=== PATIENT | male | born 1965 | race Hispanic/Latino ===

== ENCOUNTER 2023-02-17 08:16 | Outpatient (CLI) | payer SELFPAY | END 2023-02-17 08:17 | disposition home or self-care (01) | LOC: CSHWCC 08:16 | PROVIDERS: ATTEND Nurse Practitioner Family | DX: T81.89XD Other complications of procedures, not elsewhere classified, subsequent encounter (principal); E10.621 Type 1 diabetes mellitus with foot ulcer; L97.425 Non-pressure chronic ulcer of left heel and midfoot with muscle involvement without evidence of necrosis | CPT/HCPCS: 97605; 99203; G0463 ==

== ENCOUNTER 2023-02-19 11:54 | Outpatient (CLI) | payer OTHER, SELFPAY | END 2023-02-19 11:55 | disposition home or self-care (01) | LOC: CSHWCC 11:54 | PROVIDERS: ATTEND Nurse Practitioner Family | DX: E11.621 Type 2 diabetes mellitus with foot ulcer (principal); L97.425 Non-pressure chronic ulcer of left heel and midfoot with muscle involvement without evidence of necrosis | CPT/HCPCS: 97605 ==

== ENCOUNTER 2023-02-23 11:58 | Outpatient (CLI) | payer OTHER, SELFPAY | END 2023-02-23 11:59 | disposition home or self-care (01) | LOC: CSHWCC 11:58 | PROVIDERS: ATTEND Nurse Practitioner Family | DX: E11.621 Type 2 diabetes mellitus with foot ulcer (principal); L97.425 Non-pressure chronic ulcer of left heel and midfoot with muscle involvement without evidence of necrosis; R60.0 Localized edema | CPT/HCPCS: 97605 ==

== ENCOUNTER 2023-02-26 08:57 | Outpatient (CLI) | payer OTHER, SELFPAY | END 2023-02-26 08:58 | disposition home or self-care (01) | LOC: CSHWCC 08:57 | PROVIDERS: ATTEND Nurse Practitioner Family | DX: T81.89XD Other complications of procedures, not elsewhere classified, subsequent encounter (principal) | CPT/HCPCS: 97606 ==

== ENCOUNTER 2023-03-02 13:09 | Outpatient (CLI) | payer SELFPAY | END 2023-03-02 13:10 | disposition home or self-care (01) | LOC: CSHWCC 13:09 | PROVIDERS: ATTEND Nurse Practitioner Family | DX: E11.621 Type 2 diabetes mellitus with foot ulcer (principal); L97.425 Non-pressure chronic ulcer of left heel and midfoot with muscle involvement without evidence of necrosis; T81.89XD Other complications of procedures, not elsewhere classified, subsequent encounter | CPT/HCPCS: 97605 ==

== ENCOUNTER 2023-03-05 10:27 | Outpatient (CLI) | payer OTHER | END 2023-03-05 10:28 | disposition home or self-care (01) | LOC: CSHWCC 10:27 | PROVIDERS: ATTEND Nurse Practitioner Family | DX: T81.89XD Other complications of procedures, not elsewhere classified, subsequent encounter (principal); E11.621 Type 2 diabetes mellitus with foot ulcer; L97.425 Non-pressure chronic ulcer of left heel and midfoot with muscle involvement without evidence of necrosis | CPT/HCPCS: 97597; 97605 ==

== ENCOUNTER 2023-03-08 10:16 | Outpatient (CLI) | payer OTHER | END 2023-03-08 10:17 | disposition home or self-care (01) | LOC: CSHWCC 10:16 | PROVIDERS: ATTEND Nurse Practitioner Family | DX: E11.621 Type 2 diabetes mellitus with foot ulcer (principal); L97.425 Non-pressure chronic ulcer of left heel and midfoot with muscle involvement without evidence of necrosis; T81.89XD Other complications of procedures, not elsewhere classified, subsequent encounter | CPT/HCPCS: 97597; 97605 ==

== ENCOUNTER 2023-03-24 09:29 | Outpatient (CLI) | payer OTHER | END 2023-03-24 09:30 | disposition home or self-care (01) | LOC: CSHWCC 09:29 | PROVIDERS: ATTEND Preventive Medicine Undersea and Hyperbaric Medicine | DX: T81.89XD Other complications of procedures, not elsewhere classified, subsequent encounter (principal) | CPT/HCPCS: 97605 ==

== ENCOUNTER 2023-03-26 08:21 | Outpatient (CLI) | payer OTHER | END 2023-03-26 08:22 | disposition home or self-care (01) | LOC: CSHWCC 08:21 | PROVIDERS: ATTEND Physician Assistant | DX: T81.89XD Other complications of procedures, not elsewhere classified, subsequent encounter (principal) | CPT/HCPCS: 97605 ==

== ENCOUNTER 2023-03-30 15:12 | Outpatient (CLI) | payer OTHER | END 2023-03-30 15:13 | disposition home or self-care (01) | LOC: CSHWCC 15:12 | PROVIDERS: ATTEND Physician Assistant | DX: T81.89XD Other complications of procedures, not elsewhere classified, subsequent encounter (principal) | CPT/HCPCS: 11042; 87070; 87077; 87186; 87205; 99213; G0463 ==

== ENCOUNTER 2023-04-02 09:01 | Outpatient (CLI) | payer OTHER | END 2023-04-02 09:02 | disposition home or self-care (01) | LOC: CSHWCC 09:01 | PROVIDERS: ATTEND Physician Assistant | DX: T81.89XD Other complications of procedures, not elsewhere classified, subsequent encounter (principal) | CPT/HCPCS: 97602 ==

== ENCOUNTER 2023-04-05 10:50 | Outpatient (CLI) | payer OTHER | END 2023-04-05 10:51 | disposition home or self-care (01) | LOC: CSHWCC 10:50 | PROVIDERS: ATTEND Preventive Medicine Undersea and Hyperbaric Medicine | DX: T81.89XD Other complications of procedures, not elsewhere classified, subsequent encounter (principal) | CPT/HCPCS: 97602 ==

== ENCOUNTER 2023-04-06 14:54 | Outpatient (CLI) | payer OTHER | END 2023-04-06 14:55 | disposition home or self-care (01) | LOC: CSHWCC 14:54 | PROVIDERS: ATTEND Preventive Medicine Undersea and Hyperbaric Medicine | DX: T81.89XD Other complications of procedures, not elsewhere classified, subsequent encounter (principal) | CPT/HCPCS: 11043; 11046 ==

== ENCOUNTER 2023-04-09 09:04 | Outpatient (CLI) | payer OTHER | END 2023-04-09 09:05 | disposition home or self-care (01) | LOC: CSHWCC 09:04 | PROVIDERS: ATTEND Preventive Medicine Undersea and Hyperbaric Medicine | DX: T81.89XD Other complications of procedures, not elsewhere classified, subsequent encounter (principal) | CPT/HCPCS: 97602 ==

== ENCOUNTER 2023-04-12 10:16 | Outpatient (CLI) | payer OTHER | END 2023-04-12 10:17 | disposition home or self-care (01) | LOC: CSHWCC 10:16 | PROVIDERS: ATTEND Physician Assistant | DX: T81.89XD Other complications of procedures, not elsewhere classified, subsequent encounter (principal) | CPT/HCPCS: 99211; G0463 ==

== ENCOUNTER 2023-04-15 09:00 | Outpatient (CLI) | payer OTHER | END 2023-04-15 09:01 | disposition home or self-care (01) | LOC: CSHWCC 09:00 | PROVIDERS: ATTEND Physician Assistant | DX: E11.621 Type 2 diabetes mellitus with foot ulcer (principal); L97.529 Non-pressure chronic ulcer of other part of left foot with unspecified severity | CPT/HCPCS: 97597; 97598 ==

== ENCOUNTER 2023-04-22 08:50 | Outpatient (CLI) | payer OTHER | END 2023-04-22 08:51 | disposition home or self-care (01) | LOC: CSHWCC 08:50 | PROVIDERS: ATTEND Physician Assistant | DX: E11.621 Type 2 diabetes mellitus with foot ulcer (principal); L97.529 Non-pressure chronic ulcer of other part of left foot with unspecified severity | CPT/HCPCS: 97597; 97598; 99212; G0463 ==

== ENCOUNTER 2023-04-29 08:39 | Outpatient (CLI) | payer OTHER | END 2023-04-29 08:40 | disposition home or self-care (01) | LOC: CSHWCC 08:39 | PROVIDERS: ATTEND Physician Assistant | DX: E11.621 Type 2 diabetes mellitus with foot ulcer (principal); L97.509 Non-pressure chronic ulcer of other part of unspecified foot with unspecified severity; I73.9 Peripheral vascular disease, unspecified | CPT/HCPCS: 97597 ==

== ENCOUNTER 2023-05-20 10:03 | Outpatient (CLI) | payer OTHER | END 2023-05-20 10:04 | disposition home or self-care (01) | LOC: CSHWCC 10:03 | PROVIDERS: ATTEND Preventive Medicine Undersea and Hyperbaric Medicine | DX: E11.621 Type 2 diabetes mellitus with foot ulcer (principal); L97.509 Non-pressure chronic ulcer of other part of unspecified foot with unspecified severity; E11.51 Type 2 diabetes mellitus with diabetic peripheral angiopathy without gangrene | CPT/HCPCS: 17250 ==